=== PATIENT | male | born 1980 | race American Indian/Alaskan Native ===

== ENCOUNTER 2016-09-04 04:20 | Emergency (ER) | payer OTHER ==
[2016-09-04 04:46] VITALS: BP 134/87
--- NOTE | 2016-09-04 06:20 | Emergency Department Report ---
HPI - General Chief Complaint: Dental/Oral Time Seen by Provider: 09/04/16 05:59 - HPI HPI: Patient here complaining of dental pain to his upper or lower. Denies any fever or chills. Denies any facial swelling. Denies any sore throat or drooling. Pain is 8 out of 10. Patient said he took [id number] pain medication but it didn't help that much. Denies any nausea vomiting. ED Past Medical Hx - Past Medical History Previous Medical History?: No - Surgical History Past Surgical History?: No - Family History Family history: no significant - Social History Smoking Status: Current Every Day Smoker Substance Use Type: None - Medications Home Medications: Home Medications Medication Instructions Recorded Confirmed Last Taken Type Amoxicillin [Trimox CAP] 500 mg PO Q8H #30 capsule 05/03/13 Unknown Rx HYDROcodone/APAP 5-325 [Friendly 1 - 2 each PO Q6HR PRN #14 tablet 05/03/13 Unknown Rx 5/325 mg] Acetaminophen/Codeine [Tylenol 1 tab PO Q6H PRN #20 tab 09/04/16 Unknown Rx /Codeine # 3 tab] Amoxicillin [Amoxicillin TAB] 875 mg PO BID #20 tab 09/04/16 Unknown Rx Ibuprofen [Motrin] 600 mg PO Q8H PRN #15 tablet 09/04/16 Unknown Rx ED Review of Systems ROS: Stated complaint: TOOTHACHE Other details as noted in HPI Comment: All other systems reviewed and negative Constitutional: denies: chills, fever ENT: dental pain. denies: ear pain, throat pain, congestion Respiratory: no symptoms reported Cardiovascular: denies: chest pain, palpitations, edema, syncope Gastrointestinal: denies: abdominal pain, nausea, vomiting Musculoskeletal: denies: back pain, joint swelling, arthralgia Skin: denies: rash Neurological: denies: headache, weakness, numbness, paresthesias, confusion, abnormal gait, vertigo Physical Exam - Physical Exam Vital Signs: Vital Signs 09/04/16 04:43 Temperature 98.3 F Pulse Rate 79 Respiratory 18 Rate Blood Pressure 134/87 O2 Sat by Pulse 98 Oximetry General: This is a 35-year-old male well-nourished well-developed in no acute distress. Physical Exam: Head: [Normocephalic atraumatic Mouth: Moist, no pharyngeal exudate or erythema. Uvula is midline and oral airway is patent. No facial swelling. No peritonsillar abscesses. Patient with enlarge gums that is mildly inflamed, dental caries without any signs of abscess or cellulitis. Located on both sides upper and lower. Neck: Supple, no C-spine tenderness, no tracheal deviation. Nontender to palpate. no adenopathy Ears: Bilateral TMs pearly duncan . .bilateral EAC without any redness swelling or drainage Eyes: Bilateral pupils equal and reactive to light, bilateral EOM intact. Bilateral sclera and conjunctiva without injection. Normal accommodation Nose: Mucosa moist, normal mucosa. maxillary and frontal sinus non-tender to palpate. Lungs: Clear to auscultate bilaterally no rhonchi wheezes or rales. Normal work of breathing extremity; No CCE. +2 pulses. No neurovascular compromise Cardiovascular: S1-S2, regular rate rhythm. No murmurs. Skin: clean Dry and intact no rash no lesions Psych: Normal mood and behavior ED Course Vital Signs 09/04/16 04:43 Temperature 98.3 F Pulse Rate 79 Respiratory 18 Rate Blood Pressure 134/87 O2 Sat by Pulse 98 Oximetry - Reevaluation(s) Reevaluation #1: 09/04/16 07:24 Given Motrin 800 mg in emergency room for pain. ED Medical Decision Making - Medical Decision Making ED course: With diagnosis of gingivitis, dental caries and toothache. No abscess noted. I instructed patient and diagnosis and treatment plan any voice understanding. I told him I'll refer him to [facility] dental clinic he just called this morning to schedule appointment. Critical care attestation.: If time is entered above; I have spent that time in minutes in the direct care of this critically ill patient, excluding procedure time. ED Disposition Clinical Impression: Gingivitis, Toothache, Dental caries Disposition: DISCHARGED TO HOME OR SELFCARE Is pt being admited?: No Does the pt Need Aspirin: No Condition: Stable Instructions: Dental Caries (ED), Gingivitis (ED), Toothache (ED) Additional Instructions: Follow up with [facility] dental clinic called this morning to schedule an appointment Take antibiotic as prescribed. Tylenol #3 can cause drowsiness. I do not appreciate heavy machinery or drive motor vehicle while taking this medication Prescriptions: Acetaminophen/Codeine [Tylenol /Codeine # 3 tab] 1 tab PO Q6H PRN #20 tab PRN Reason: Toothache Amoxicillin [Amoxicillin TAB] 875 mg PO BID #20 tab Ibuprofen [Motrin] 600 mg PO Q8H PRN #15 tablet PRN Reason: Pain Referrals: PRIMARY CARE,MD [Primary Care Provider] - 3-5 Days Forms: Accompanied Note, Work/School Release Form(ED)
[2016-09-04] MEDS: MOTRIN PO ONE (06:42)
== END 2016-09-04 07:38 | disposition home or self-care (01) ==
LOC: ED 04:20
DX: K05.10 Chronic gingivitis, plaque induced (principal); K02.9 Dental caries, unspecified; F17.200 Nicotine dependence, unspecified, uncomplicated
CPT/HCPCS: 99282